=== PATIENT | female | born 1965 | race Caucasian/White ===

== ENCOUNTER 2024-06-09 21:44 | Emergency (ER) | payer OTHER ==
[~2024-06-09] VITALS: Ht 160 cm; Wt 114.8 kg
[~2024-06-09 21:44] MED LIST: ADVIL LIQUI-GE200 MG PO
[2024-06-09] MEDS ORDERED: DEXAMETHASONE SOD PHOS 10 MG/ML VIAL IM ONE (22:30)
[2024-06-09] MEDS ORDERED: BENZONATATE 100 MG CAP PO ONE (22:30)
[2024-06-09] MEDS ORDERED: ALBUTEROL/IPRATROPIUM 3 ML NEB INH ONE (22:30)
[2024-06-09 23:13] LABS: INFLUENZA B NAA NEGATIVE (NEGATIVE); RESPIRATORY SYNCYTIAL VIR NAA NEGATIVE (NEGATIVE)
[2024-06-09] MEDS ORDERED: IBUPROFEN 600 MG TAB PO ONE (23:30)
[2024-06-09] MEDS ORDERED: BUDESONIDE 0.5 MG/2 ML VIAL INH ONE (23:45)
[2024-06-09] MEDS ORDERED: ALBUTEROL SULFATE 8 GM HOME.PACK INH ONE (23:45)
[2024-06-09] MEDS ORDERED: INHALER, ASSIST DEVICES 1 EACH SPACER MISC ONE (23:45)
[2024-06-10] MEDS ORDERED: BENZONATATE100 MG PO (00:15)
[2024-06-10] MEDS ORDERED: ASPIRIN 325 MG TAB PO ONE (00:15)
[2024-06-10] MEDS ORDERED: methylPREDNISolone 4 MG HOME.PACK PO ONE (00:15)
[2024-06-10] MEDS ORDERED: LEVOFLOXACIN500 MG PO (00:23)
[2024-06-10] MEDS ORDERED: levoFLOXacin 750 MG TAB PO ONE (00:30)
[2024-06-10] MEDS ORDERED: ASPIRIN 81 MG CHEW PO ONE (00:30)
[2024-06-10 00:52] VITALS: BP 121/71
== END 2024-06-10 00:51 | disposition home or self-care (01) ==
LOC: ED 21:44
PROVIDERS: Family Medicine
DX: J18.9 Pneumonia, unspecified organism (principal); Z88.6 Allergy status to analgesic agent
CPT/HCPCS: 71045; 87502; 94640; 94664; 94667; 96372; 99285-25; A9270; J1100